=== PATIENT | male | born 1990 | race Caucasian/White ===

== ENCOUNTER 2017-11-28 11:32 | Emergency (ER) | payer BC, SELFPAY ==
[2017-11-28] MEDS ORDERED: Ondansetron ODT 4 MG TAB ONE (12:13)
[2017-11-28] MEDS ORDERED: Ketorolac Tromethamine 30 MG/ML VIAL ONE (12:13)
== END 2017-11-28 12:37 | disposition home or self-care (01) ==
LOC: MADERS 11:32
DX: G89.29 Other chronic pain (principal); M54.5 Low back pain; F11.23 Opioid dependence with withdrawal; F17.220 Nicotine dependence, chewing tobacco, uncomplicated; Z79.899 Other long term (current) drug therapy
CPT/HCPCS: 96372; J1885; Q0162